=== PATIENT | male | born 1965 | race Caucasian/White ===

== ENCOUNTER 2021-11-19 07:20 | Emergency (ER) | payer MEDICARE, SELFPAY ==
--- NOTE | ~2021-11-19 | CT_ITS ---
EXAMINATION: CT abdomen pelvis wo con DATE: 11/19/2021 08:10 INDICATION: Left flank pain. TECHNIQUE: Computed tomography (CT) of the abdomen and pelvis was performed without intravenous contr ast. Automated exposure control and iterative reconstruction technique were employed. The dose-length product was 189.39 mGy-cm. COMPARISON: CT abdomen and pelvis 06/03/2015 FINDINGS: The visualized portions of the lung bases demonstrate mild atelectasis. No pleural effusion . The heart size is normal. No pericardial effusion. There is a small sliding hiatal hernia. The live r, gallbladder, pancreas, and adrenal glands are normal. Calcifications in the spleen are consistent with old granulomatous disease. Right kidney is normal. There is mild left hydronephrosis and hydrour eter. There is a 3 mm stone in distal left ureter. The prostate is mildly enlarged. There is divertic ulosis of the colon without evidence of diverticulitis. There are no dilated loops of bowel. The appe ndix is not visualized. There are no pathologically enlarged lymph nodes. There is no free intraperit mcleod fluid. There is mild lumbar spondylosis. IMPRESSION: 1. 3 mm stone in distal left ureter with mild left hydronephrosis and hydroureter. 2. Small sliding hiatal hernia. Reviewed, dictated and finalized at location B. IMPRESSION: 1. 3 mm stone in distal left ureter with mild left hydronephrosis and hydrouret er. 2. Small sliding hiatal hernia.
[2021-11-19 07:25] VITALS: BP 172/98; PULSE 71; RESP 18; TEMP 36.3; O2SAT 97
--- NOTE | 2021-11-19 07:38 | ED.ABDPAIN ---
HPI - Abdominal Pain General Chief Complaint: Back Pain/Injury Stated Complaint: POSSIBLE KIDNEY STONE Time Seen by Provider: 11/19/21 07:40 Related Data Allergies Allergy/AdvReac Type Severity Reaction Status Date / Time No Known Allergies Allergy Verified 11/19/21 07:37 [facility] Past Medical History Medical History (Updated 11/20/21 @ 00:00 by Latanya Pagan) Shoulder dislocation Surgical History Surgical History History of appendectomy Family History Family History Mother Hypertension Father Family history of pancreatic cancer, Onset Age: 61 Patient's father is Social History Social History Smoking packs per day: 0.5 Smoking cigarettes per day: 10.0 Years smoked: 35 Smoking pack-years: 17.50 Smoking status: Current every day smoker Tobacco type: cigarettes Second hand tobacco smoke exposure: Yes Alcohol intake: current Substance use: never Course Vital Signs Vital signs: Vital Signs Temperature 36.3 C L 11/19/21 07:25 Pulse Rate 71 11/19/21 07:25 Respiratory Rate 18 11/19/21 07:25 Blood Pressure 172/98 H 11/19/21 07:25 Pulse Oximetry 97 11/19/21 07:25 Temperature 36.3 C L 11/19/21 07:25 Pulse Rate 64 11/19/21 08:48 Respiratory Rate 16 11/19/21 08:48 Blood Pressure 150/60 H 11/19/21 08:48 Pulse Oximetry 97 11/19/21 08:48 MDM - Abdominal Pain Lab Data Result diagrams: 11/19/21 07:57 11/19/21 07:57 Labs: Lab Results 11/19/21 11/19/21 11/19/21 Range/Units 07:57 07:57 07:57 WBC 13.8 H (4.8-10.8) K/mm3 RBC 5.24 (4.70-6.10) M/mm3 Hgb 16.5 (14.0-18.0) g/dL Hct 47.6 (40.0-54.0) % MCV 90.8 (78.0-102.0) fL MCH 31.5 H (27.0-31.0) pg MCHC 34.7 (32.0-36.0) g/dL RDW 12.7 (11.6-14.4) % Plt Count 216 (150-420) K/mm3 MPV 9.2 (8.7-11.0) fl Immature Gran % (Auto) 0.4 H (0.0-0.0) % Neut % (Auto) 77.4 H (50.0-70.0) % Lymph % (Auto) 12.6 L (18.0-42.0) % [place] % (Auto) 8.4 (2.0-11.0) % Eos % (Auto) 1.1 (1.0-6.0) % Baso % (Auto) 0.1 (0.0-1.0) % Lymph # (Auto) 1.75 (1.10-4.50) K/mm3 [place] # (Auto) 1.16 H (0.10-0.90) K/mm3 Eos # (Auto) 0.15 (0.02-0.50) K/mm3 Baso # (Auto) 0.02 (0.00-0.10) K/mm3 Abs Immat Gran (auto) 0.06 H (0.00-0.00) K/mm3 Absolute Neuts (auto) 10.7 H (1.7-7.2) K/mm3 Absolute Nucleated RBC 0.00 (0.00-0.00) K/mm3 Nucleated RBC % 0.0 (0-0.0) % Sodium 139 (136-145) mmol/L Potassium 3.7 (3.5-5.1) mmol/L Chloride 105 (98-108) mmol/L Carbon Dioxide 24 (21-32) mmol/L Anion Gap 10 (8-16) mmol/L BUN 20 H (7-18) mg/dL Creatinine 1.26 (0.70-1.30) mg/dL Estim Creat Clear Calc 56 ml/min Estimated GFR 59 (59 - ) Glucose 109 H (70-99) mg/dL Calculated Osmolality 291 (285-295) mOsm/kg Calcium 8.8 (8.5-10.1) mg/dL Total Bilirubin 0.5 (0.00-1.00) mg/dL AST 25 (15-37) U/L ALT 24 (16-63) U/L Alkaline Phosphatase 120 H (46-116) U/L C-Reactive Protein 1.0 H (0.0-0.9) mg/dL Total Protein 7.4 (6.4-8.2) g/dL Albumin 3.8 (3.4-5.0) g/dL Urine Color (Yellow) Urine Appearance (Clear) Urine pH (5.0-8.0) Ur Specific [place] (1.010-1.020) Urine Protein (Negative) Urine Glucose (UA) (Negative) Urine Ketones (Negative) Ur Blood (Man) (Negative) Urine Nitrate (Negative) Urine Bilirubin (Negative) Urine Urobilinogen (0.2-1.0) mg/dL Leukocyte Esterase Rfl (Negative) MERRICK/UL Urine RBC (0-2) /hpf Urine WBC (0-3) /hpf Ur Squamous Epith Cells (Few) /hpf Calcium Oxalate Crystal (None) /hpf Urine Bacteria (None) /hpf 11/19/21 Range/Units 08:11 WBC (4.8-10.8
--- NOTE | 2021-11-19 07:40 | ED.ABDPAIN ---
HPI - Abdominal Pain General Chief Complaint: Back Pain/Injury Stated Complaint: POSSIBLE KIDNEY STONE Time Seen by Provider: 11/19/21 07:40 Source: patient and RN notes reviewed Mode of arrival: ambulatory Limitations: no limitations History of Present Illness MD elicited complaint: flank pain Pertinent past history: kidney stones Onset (ago): hour(s) (5) Pain Consistency: constant Location: L flank Severity: moderate Quality: stabbing and sharp Radiation: none Migration to: no migration Exacerbating factors: movement Relieving factors: nothing Associated symptoms: nausea Related Data Allergies Allergy/AdvReac Type Severity Reaction Status Date / Time No Known Allergies Allergy Verified 11/19/21 07:37 Review of Systems Review of Systems: All systems reviewed & are unremarkable except as noted in HPI and below PMFSH Past Medical History Medical History (Updated 11/19/21 @ 08:43 by Dax Person MD) Shoulder dislocation Surgical History Surgical History History of appendectomy Family History Family History Mother Hypertension Father Family history of pancreatic cancer, Onset Age: 61 Patient's father is Social History Social History Smoking packs per day: 0.5 Smoking cigarettes per day: 10.0 Years smoked: 35 Smoking pack-years: 17.50 Smoking status: Current every day smoker Tobacco type: cigarettes Second hand tobacco smoke exposure: Yes Alcohol intake: current Substance use: never Exam Const: General: healthy appearing, no acute distress and alert Nutritional Appearance: well nourished and thin Orientation/consciousness: patient oriented x3 HENMT: Head: normal to inspection Ears: external ears normal Eyes: Conjunctivae: conjunctivae normal Pupils: Equal, round and reactive pupils present EOM: EOMs intact bilaterally Neck: Neck: normal visual inspection Resp: Effort & Inspection: normal respiratory effort Auscultation: clear to auscultation bilaterally Cardio: Rate: regular rate Rhythm: regular rhythm GI: GI Palp: Yes Soft to palpation, Yes Tenderness to palpation present (GI) (LUQ), Yes Guarding due to palpation present (GI) (mild LUQ) and No Rebound tenderness present Auscultation: normal bowel sounds Back/Spine/Pelvis: Back: CVA tenderness (left moderate) Cervical Spine: cervical ROM normal Thoracic/Lumbar Spine: thoraco-lumbar ROM normal Skin: General skin exam: normal color Rashes: no rashes Neuro: General: patient oriented x3, moves all extremities, no meningeal signs and no focal motor deficits Speech: normal speech Gait exam (Neuro): Normal gait present Extrem: General: normal to inspection and no clubbing, cyanosis or edema Psych: Appearance: grossly normal and well kempt Mental Status: mental status grossly normal Affect: normal affect Attitude: cooperative Thought content: Yes Normal thought content present Course Vital Signs Vital signs: Vital Signs Temperature 36.3 C L 11/19/21 07:25 Pulse Rate 71 11/19/21 07:25 Respiratory Rate 18 11/19/21 07:25 Blood Pressure 172/98 H 11/19/21 07:25 Pulse Oximetry 97 11/19/21 07:25 Temperature 36.3 C L 11/19/21 07:25 Pulse Rate 64 11/19/21 08:48 Respiratory Rate 16 11/19/21 08:48 Blood Pressure 150/60 H 11/19/21 08:48 Pulse Oximetry 97 11/19/21 08:48 MDM - Abdominal Pain Lab Data Result diagrams: 11/19/21 07:57 11/19/21 07:57 Labs: Lab Results 11/19/21 11/19/21 11/19/21 Range/Units 07:57 07:57 07:57 WBC 13.8 H (4.8-10.8) K/mm3 RBC 5.24 (4.70-6.10) M/mm3 Hgb 16.5 (14.0-18.0) g/dL Hct 47.6 (40.0-54.0) % MCV 90.8 (78.0-102.0) fL MCH 31.5 H (27.0-31.0) pg MCHC 34.7 (32.0-36.0) g/dL RDW 12.7 (11.6-14.4) % Plt C
[2021-11-19] MEDS: KETOROLAC 30 MG/ML VIAL (*BKC) IM (07:53)
[2021-11-19 08:01] LABS: Basophils Absolute Auto 0.02 K/mm3 (0.00-0.10); Basophils Percent Auto 0.1 % (0.0-1.0); Eosinophils Absolute Auto 0.15 K/mm3 (0.02-0.50); Eosinophils Percent Auto 1.1 % (1.0-6.0); Hematocrit 47.6 % (40.0-54.0); Hemoglobin 16.5 g/dL (14.0-18.0); Immature Granulocyte Absolute 0.06 K/mm3 (0.00-0.00); Immature Granulocyte Percent A 0.4 % (0.0-0.0); Lymphocytes Absolute Auto 1.75 K/mm3 (1.10-4.50); Lymphocytes Percent Auto 12.6 % (18.0-42.0); Mean Corpuscular HGB Conc 34.7 g/dL (32.0-36.0); Mean Corpuscular Hemoglobin 31.5 pg (27.0-31.0); Mean Corpuscular Volume 90.8 fL (78.0-102.0); Mean Platelet Volume 9.2 fl (8.7-11.0); Monocytes Absolute Auto 1.16 K/mm3 (0.10-0.90); Monocytes Percent Auto 8.4 % (2.0-11.0); Neutrophils Absolute Auto 10.7 K/mm3 (1.7-7.2); Neutrophils Percent Auto 77.4 % (50.0-70.0); Platelet Count Result 216 K/mm3 (150-420); Red Blood Count 5.24 M/mm3 (4.70-6.10); Red Cell Distribution Width 12.7 % (11.6-14.4); White Blood Count 13.8 K/mm3 (4.8-10.8)
[2021-11-19 08:16] LABS: Add Urine Microscopic? YES; Appearance Urine Clear (Clear); Bilirubin Urine 1+ (Negative); Blood Urine 3+ (Negative); Color Urine Dark Yellow (Yellow); Glucose Urine UA Negative (Negative); Ketones Urine Trace (Negative); Leukocyte Esterase Ur Negative LEU/UL (Negative); Nitrate Urine Negative (Negative); Protein Urine Trace (Negative); Specific Grav Ur >= 1.030 (1.010-1.020); pH Urine 5.5 (5.0-8.0)
[2021-11-19 08:19] LABS: Alanine Aminotransferase 24 U/L (16-63); Albumin Level 3.8 g/dL (3.4-5.0); Alkaline Phosphatase 120 U/L (46-116); Anion Gap 10 mmol/L (8-16); Aspartate Amino Transferase 25 U/L (15-37); Bilirubin,Total 0.5 mg/dL (0.00-1.00); Blood Urea Nitrogen 20 mg/dL (7-18); Calcium 8.8 mg/dL (8.5-10.1); Carbon Dioxide 24 mmol/L (21-32); Chloride 105 mmol/L (98-108); Estimated CRCL calculation 56 ml/min; Estimated Glomerular Filt Rate 59; Glucose 109 mg/dL (70-99); Osmolality Calculated 291 mOsm/kg (285-295); Potassium 3.7 mmol/L (3.5-5.1); Sodium 139 mmol/L (136-145); Total Protein 7.4 g/dL (6.4-8.2)
[2021-11-19 08:28] LABS: RBC Urine 21-50 /hpf (0-2); Squamous Epithelial Cell Urine Few /hpf (Few); WBC Urine 0-3 /hpf (0-3)
[2021-11-19 08:29] LABS: Bacteria Urine None seen /hpf; Calcium Oxalate Crystals Urine Present /hpf
[2021-11-19 08:48] VITALS: BP 150/60; PULSE 64; RESP 16; O2SAT 97
== END 2021-11-19 08:55 | disposition home or self-care (01) ==
PROVIDERS: Emergency Provider Emergency Medicine; PCP Internal Medicine
DX: N20.1 Calculus of ureter (principal)
CPT/HCPCS: 36415; 74176; 80053; 81001; 85025; 86140; 96372; 99284; J1885

== ENCOUNTER 2022-08-12 13:20 | Emergency (ER) | payer MEDICARE, SELFPAY ==
[2022-08-12] VITALS (15 sets, daily range): BP systolic 119–171; BP diastolic 77–108; PULSE 50–60; RESP 11–14; TEMP 36.4; O2SAT 97–100
--- NOTE | ~2022-08-12 | CT_ITS ---
EXAMINATION: CTA chest abdomen pelvis DATE: 08/12/2022 14:51 INDICATION: Severe right flank and abdominal pain TECHNIQUE: Computed tomographic angiography (CTA) of the chest, abdomen, and pelvis was performed wit hout and with 100 mL Omnipque-350 intravenous contrast. Maximum intensity projection 3D-reconstructio ns of the aorta and other arteries were constructed by the technologist on a separate workstation. Th e dose-length product (DLP) was 683.20 mGy-cm. Automated exposure control and iterative reconstructio n technique were employed. COMPARISON: 11/19/2021 FINDINGS: CHEST CTA: There is no aneurysm or dissection of the thoracic aorta. The lungs are free of acute opacities. No p leural effusion or pneumothorax. There is mild dependent atelectasis. A stable 3 mm subpleural nodule is noted in the right lower lobe. There is a moderate-sized sliding hiatal hernia. No pathologically enlarged thoracic lymph nodes are identified. The heart size is normal. ABDOMEN AND PELVIS CTA: There is no aneurysm or dissection of the abdominal aorta. The celiac axis and superior mesenteric ar gavin, and inferior mesenteric artery are normal at their origins. There are two right and one left re nal arteries. The liver, pancreas, gallbladder, and adrenal glands are normal. Punctate calcification s in an otherwise normal spleen likely represent healed granulomatous disease. The kidneys are unrema rkable. No pathologically enlarged abdominal or pelvic lymph nodes are identified. There is a questio nable soft tissue density of the left posterolateral bladder wall. No free intraperitoneal gas or cam dence of bowel obstruction. IMPRESSION: 1. Unremarkable CTA. No aneurysm or dissection of the thoracic or abdominal aorta. 2. Moderate-sized sliding hiatal hernia. 3. Possible soft tissue mass of the left posterolateral bladder wall. Nonemergent urologic follow-up is recommended. Reviewed, dictated and finalized at location L. ESTATE ASSISTANT IMPRESSION: 1. Unremarkable CTA. No aneurysm or dissection of the thoracic or abdominal aor ta. 2. Moderate-sized sliding hiatal hernia. 3. Possible soft tissue mass of the left posterolateral bladder wall. Nonemerge nt urologic follow-up is recommended.
--- NOTE | 2022-08-12 13:31 | ECG_ITS ---
Measurements Intervals [place] Rate: 54 P: 77 [place]: 165 QRS: -24 QRSD: 90 T: 37 QT: 417 QTc: 395 Interpretive Statements SINUS BRADYCARDIA BORDERLINE LEFT AXIS DEVIATION [QRS AXIS < -20] NO PREVIOUS ECG AVAILABLE FOR COMPARISON Electronically Signed On 08-12-2022 14:59:49 ADMIN DIR by Ravin Yusuf M.D.
[2022-08-12 13:54] LABS: Basophils Percent Auto 0.2 % (0.2-1.2); Eosinophils Absolute Auto 0.1 K/mm3 (0-0.3); Hematocrit 49.7 % (42.0-52.0); Hemoglobin 17.3 g/dL (14.0-18.0); Immature Granulocyte Absolute 0.06 K/mm3 (0.00-0.031); Immature Granulocyte Percent A 0.5 % (0-0.5); Mean Corpuscular HGB Conc 34.8 g/dl (32-36); Mean Corpuscular Hemoglobin 32.2 pg (26-34); Mean Corpuscular Volume 92.6 fl (80-100); Mean Platelet Volume 9.2 fl (7.4-10.4); Monocytes Absolute Auto 0.7 K/mm3 (0.1-0.6); Monocytes Percent Auto 5.5 % (2.6-8.5); Neutrophils Absolute Auto 9.2 K/mm3 (1.3-6.7); Neutrophils Percent Auto 76.8 % (45.5-73.1); Platelet Count Result 245 k/mm3 (150-375); Red Blood Count 5.37 M/mm3 (4.6-6.20); Red Cell Distribution Width 13.2 % (11.5-14.5); White Blood Count 11.9 K/mm3 (4.5-10.0)
[2022-08-12 14:13] LABS: Alanine Aminotransferase 33 U/L (6-50); Albumin Level 4.9 g/dL (3.5-5.1); Alkaline Phosphatase 118 U/L (38-126); Anion Gap 10 mmol/L (8-16); Aspartate Amino Transferase 28 U/L (17-59); Bilirubin,Total 0.5 mg/dL (0.2-1.3); Blood Urea Nitrogen 20 mg/dL (9-20); Calcium 9.4 mg/dL (8.4-10.2); Carbon Dioxide 22 mmol/L (22-30); Chloride 103 mmol/L (98-107); Estimated CRCL calculation 79 ml/min; Estimated Glomerular Filt Rate > 60; Glucose 150 mg/dL (65-110); Lipase 56 U/L (23-300); Sodium 135 mmol/L (137-145)
--- NOTE | 2022-08-12 15:39 | ED.ABDPAIN ---
HPI - Abdominal Pain General Chief Complaint: Abdominal Pain Stated Complaint: low abd pain/back pain Time Seen by Provider: 08/12/22 13:35 History of Present Illness HPI narrative: Patient with history of chronic back pain on [place] presents with pain that has persisted despite his taking pain medicine, he states that he woke up around 8 this morning with a mild pain, it things started getting worse and seem to wrap to the front. States this feels different from when he had a kidney stone in the past. No nausea or vomiting. No focal numbness or weakness, no chest pain. No dysuria Related Data Allergies Allergy/AdvReac Type Severity Reaction Status Date / Time No Known Allergies Allergy Verified 05/05/22 09:50 Review of Systems Review of Systems: CONST: No fever. HEENT: No sore throat C/V: No chest pain RESP: No cough GI: Reports abdominal pain : No dysuria. M/S: No joint pain. SKIN: No rash. NEURO: [No headache or focal numbness or weakness] PSYCH: [No depression] PMFSH Past Medical History Medical History Shoulder dislocation Surgical History Surgical History History of appendectomy Family History Family History Mother Hypertension Father Family history of pancreatic cancer, Onset Age: 61 Patient's father is Social History Social History Smoking packs per day: 0.5 Smoking cigarettes per day: 10.0 Years smoked: 35 Smoking pack-years: 17.50 Smoking status: Current every day smoker Tobacco type: cigarettes Second hand tobacco smoke exposure: Yes Alcohol intake: current Substance use: never Lack of Transportation: No Lack of Food: Often True Current Housing: I Have Housing Concerned About Future Housing: No Difficulty Paying Gas/Electric Bills: Decline to Answer Difficulty Paying for Meds: No Currently Unemployed: No Education: Decline to Answer Difficulty w/ Childcare or Family Care: No Exam Narrative: EXAMINATION OF ORGAN SYSTEMS/BODY AREAS: Constitutional: Vital signs per nursing GENERAL:[No acute distress, non-toxic appearing.] HEAD: Normal with no signs of head trauma. EYES: EOMI, conjunctiva normal ENT: Hearing grossly intact LUNGS: Nonlabored breathing. HEART: [Regular rate and rhythm]. Normal pulses radial and DP bilaterally ABD: [Soft], mildly tender to palpation right side/flank EXT: Normal range of motion SKIN: [No rashes or lesions.] NEURO: [Alert and oriented x 3. No gross focal sensory or strength deficits.] PSYCH: Normal affect Course Vital Signs Vital signs: Vital Signs Temperature 97.5 F L 08/12/22 13:25 Pulse Rate 51 L 08/12/22 13:25 Respiratory Rate 14 08/12/22 13:25 Blood Pressure 171/108 H 08/12/22 13:25 Pulse Oximetry 100 08/12/22 13:25 Oxygen Delivery Room Air 08/12/22 13:25 Temperature 97.5 F L 08/12/22 13:25 Pulse Rate 60 08/12/22 16:45 Respiratory Rate 14 08/12/22 16:45 Blood Pressure 140/93 H 08/12/22 16:45 Pulse Oximetry 98 08/12/22 16:46 Oxygen Delivery Room Air 08/12/22 13:25 MDM - Abdominal Pain MDM Narrative Medical decision making narrative: Electronic medical record was reviewed. Patient presented to the ED with complaint of [abdominal and flank pain]; has had history of appendectomy. Vitals [were within acceptable limits]. Physical exam revealed soft abdomen with minimal tenderness to palpation right flank/abdomen. Based on the patient's history and physical exam, my differential includes but is not limited to [gastritis, muscle spasm, nephrolithiasis, gastroenteritis, cholecystitis, pancreatitis, dissection/aneurysm]. [IV access was established by nursing staff. Patient had already received fentanyl from EMS]. CBC, BMP, lipase, LFTs, bilirubin and alk
[2022-08-12 15:42] LABS: Appearance Urine Clear (Clear); Bilirubin Urine Negative (Negative); Blood Urine Trace-lysed (Negative); Color Urine Yellow (Yellow); Glucose Urine UA Trace mg/dL (Negative); Ketones Urine Negative (Negative); Leukocyte Esterase Ur Negative LEU/UL (Negative); Nitrate Urine Negative (Negative); Protein Urine Trace mg/dL (Negative); Specific Grav Ur 1.025 (1.001-1.035); Urobilinogen Urine 0.2 mg/dL (<2.0); pH Urine 6.5 (5.0-9.0)
[2022-08-12 15:53] LABS: Bacteria Urine Trace /hpf; Mucus Urine Rare /lpf; Squamous Epithelial Cell Urine Rare /hpf (Few)
[2022-08-12 16:31] LABS: Add Urine Microscopic? YES
== END 2022-08-12 17:02 | disposition home or self-care (01) ==
PROVIDERS: Emergency Medicine; Emergency Provider Emergency Medicine; PCP Internal Medicine
DX: R10.30 Lower abdominal pain, unspecified (principal); G89.29 Other chronic pain; M54.9 Dorsalgia, unspecified; F17.210 Nicotine dependence, cigarettes, uncomplicated; R00.1 Bradycardia, unspecified; K44.9 Diaphragmatic hernia without obstruction or gangrene; R93.41 Abnormal radiologic findings on diagnostic imaging of renal pelvis, ureter, or bladder
CPT/HCPCS: 36415; 71275; 74174; 80053; 81001; 83690; 85025; 93005; 99284; Q9967

== ENCOUNTER 2022-09-30 00:17 | Day surgery (SDC) | payer MEDICARE, SELFPAY ==
[2022-09-23 09:32] VITALS: BMI 25.4
--- NOTE | 2022-09-23 09:39 | PC.NURSE ---
Report to the Outpatient Waiting Room, entrance under the green pavilion located off [facility], at time 8:15 on date 09/30/22. Planned Procedure Time: 10:15. Time changes happen often and if your time is changed the preop area will call you the afternoon before. - You and your visitor will be asked to self-screen and do not enter if you have any COVID symptoms. - Only one visitor is requested with a max of two and NO children visitors are allowed at this time. - The patient visitor may be requested to leave or wait in car when not with patient due to distancing restrictions. - A mask is optional within the hospital at this time. Patients may have clear liquids (water, carbonated beverages, clear teas, apple juice) until 3 hours prior to surgery with a maximum of 20 ounces. - No food from midnight until time of surgery Take the following medications with a SIP of water the morning of surgery: PAIN PILL IF NEEDED DO NOT STOP ANY OF YOUR OTHER PRESCRIPTION MEDICATIONS PRIOR TO SURGERY?EXCEPT THE FOLLOWING Medications to discontinue per physician: N/A Date to take last dose: N/A Please no make-up, nail mozambican, hairspray, perfume, deodorant, or body powder the day of surgery. No jewelry (including any body piercings) or valuables the day of surgery, leave them at home. Please take a shower or bath the night before, or the morning of, surgery with an antibacterial soap. Wear comfortable, loose fitting clothing. - Jewelry must be removed prior to entering the operating room. Rings and piercings that are not removed may be cut off. - The hospital will not accept responsibility for valuables. - Please leave all valuables, including medications, at home the day of surgery. If you are going home after surgery, a licensed regional driver must drive you home. - NO public transportation without another adult if you receive anesthesia. - We recommend that an adult stay with you for 24 hours following discharge. - We also recommend that you do not drive, make important decision, drink alcoholic beverages, or take any drugs that were not prescribed by your health care provider for at least 24 hours after your discharge time. Follow any additional instructions given to you from your surgeon. If you or anyone in your household have experienced Covid symptoms in the past week, please notify your surgeon or the nurse liaison at the phone number below for possible testing. Telephone instructions given to PT - DEEPAK SOLER and asked if any additional questions and then verbalized understanding. Patient advised to call surgeon office or pre surgery nurse liaison [phone] if any additional questions.
[2022-09-30] VITALS (12 sets, daily range): BP systolic 105–150; BP diastolic 73–89; PULSE 55–89; RESP 10–16; TEMP 36.2–36.3; O2SAT 98–100
--- NOTE | 2022-09-30 08:14 | WPDHPUPDATE1 ---
History and Physical Update Update Date/Time: 09/30/22 08:14 History and Physical has been reviewed, including an updated exam of the patient. There are NO changes in the patient's condition. Risks, benefits, and alternatives have been discussed and questions answered. Patient agrees to proceed with procedure. Proceed with transurethral resection of bladder tumor
[2022-09-30] MEDS: LACTATED RINGERS 1,000 ML 30 ML IV CONT (08:45)
--- NOTE | 2022-09-30 09:00 | WPDANESEPPF ---
Anes - Initial Pre Proc Eval Procedure: Operation Date: 09/30/22 10:15 Proposed Procedures p Trans Urethral Resection Bladder Tumor - Amando Waters MD Date/Time: 09/30/22 09:00 Surgeon: Amando Waters MD Pre Op Diagnosis: Bladder Lesion Patient Data Age: 57 Gender: M Height: 1.74 m Weight: 77.11 kg Allergies Allergy/AdvReac Type Severity Reaction Status Date / Time No Known Allergies Allergy Verified 09/23/22 09:31 Home Medications Medication Instructions Recorded Confirmed Type hydrocodone 5 mg-acetaminophen 325 1 tablet PO Q12H PRN pain #60 tabs 07/29/22 09/23/22 Rx mg tablet omeprazole 20 mg capsule,delayed 20 mg PO BID #60 caps 09/03/22 09/23/22 Rx release Laboratory Tests 09/30/22 08:47 PT Pending INR Pending APTT Pending Patient hx anesthesia problems: none Family hx anesthesia problems: none Results Review: All pre-operative results and documents have been reviewed as part of the pre-operative evaluation. [facility] Past Medical History Medical History Shoulder dislocation Surgical History Surgical History History of appendectomy Family History Family History Mother Hypertension Father Family history of pancreatic cancer, Onset Age: 61 Patient's father is Social History Social History Smoking packs per day: 0.5 Smoking cigarettes per day: 10.0 Years smoked: 30 Smoking pack-years: 15.00 Smoking status: Current every day smoker Tobacco type: cigarettes Second hand tobacco smoke exposure: Yes Alcohol intake: current Alcohol use details: 4/MONTH Substance use: current Substance use type: marijuana Lack of Transportation: No Lack of Food: Never True Current Housing: I Have Housing Concerned About Future Housing: No Difficulty Paying Gas/Electric Bills: No Difficulty Paying for Meds: No Currently Unemployed: No Education: Decline to Answer Difficulty w/ Childcare or Family Care: No Living arrangements: with family Spiritual care concerns: No Anes - Eval Final PreProcedure Day of Procedure 09/30/22 09:00 Patient weight: normal Heart: regular rate and rhythm Lungs: decreased breath sounds Airway: Mallampati scale class II Neurological: alert and oriented Last oral intake: >/= 8 hours ASA classification: III Emergent: no Anesthetic plan: proceed Anesthesia type and monitoring: general LMA and standard monitoring Results Review: All pre-operative results and documents have been reviewed as part of the pre-operative evaluation. Informed Consent: The patient's anesthetic plan and its attendant risks and benefits were discussed with the patient/family/POA. Questions were solicited and answers provided to the satisfaction of the patient/family/POA.
[2022-09-30 09:10] LABS: Prothrombin Time 12.7 Seconds (11.1-14.7)
[2022-09-30] MEDS: ceFAZolin 2 GM/D5W 50 ML 2 GM/50 ML BAG IVPB (09:17)
[2022-09-30] MEDS: LIDOCAINE HCL 2% GEL UROJET 10 ML PKG MUCOUS MEM (09:30)
--- NOTE | 2022-09-30 09:43 | W.PM.PROC2 ---
Procedure Note - Detailed Date of Procedure 09/30/22 Pre-op Diagnosis Bladder Lesion Post-op Diagnosis Same Procedure Performed Transurethral resection of bladder tumor medium size 3 cm Surgeon Amando Waters MD Anesthesia General Description of Procedure Patient is taken to the operative suite correctly identified. Once anesthesia was obtained was placed in door for pulmonary position and prepped and draped usual sterile fashion. [place] resectoscope sheath was inserted the bladder. He has a tumor located just lateral to the left ureteral orifice. The area in diameters about 3 cm. We resected this area and then took a separate specimen from the base. There appeared to be good hemostasis at the termination of the procedure. We had fulgurated the base area. At this point the bladder was drained 2% viscous lidocaine was inserted into the urethra. Patient is taken recovery stable condition. Instructed to call for path results in a week if he is not her illness. Please send a copy of op note to my office Estimated Blood Loss 0 Drains Yes Packing No Pathology Yes Complications No immediate complications Condition Stable Disposition PACU
== END 2022-09-30 12:42 | disposition home or self-care (01) ==
PROVIDERS: PCP Internal Medicine; Visit Provider Urology
PROC: 0TBB8ZZ Excision of Bladder, Via Natural or Artificial Opening Endoscopic (ICD-10-PCS; CPT 52235; principal; 2022-09-30 10:15)
DX: C67.2 Malignant neoplasm of lateral wall of bladder (principal); F17.210 Nicotine dependence, cigarettes, uncomplicated; F12.90 Cannabis use, unspecified, uncomplicated
CPT/HCPCS: 52235; 36415; 85610; 85730; 88305; J0690; J1100; J1170; J2250; J2405; J2704; J3010; J7120

== ENCOUNTER 2022-12-09 21:25 | Emergency (ER) | payer MEDICARE, SELFPAY ==
--- NOTE | ~2022-12-09 | CT_ITS ---
EXAMINATION: CTA chest PE protocol DATE: 12/09/2022 22:49 INDICATION: Chest pain TECHNIQUE: Computed tomography angiography (CTA) of the chest was performed with 100 mL Omnipaque-350 intravenous contrast timed to evaluate the pulmonary arteries. Coronal maximum intensity projection 3D-reconstructions were created by the technologist. The dose-length product (DLP) was 310.79 mGy-cm. Automated exposure control and iterative reconstruction technique were employed. COMPARISON: 08/12/2022 FINDINGS: The pulmonary arteries are well-opacified. No pulmonary embolism is identified. No patholog ically enlarged thoracic lymph nodes are identified. The heart size is normal. The lungs are free of acute opacities. No pleural effusion or pneumothorax. A moderate-sized sliding hiatal hernia is noted . IMPRESSION: 1. No pulmonary embolism or acute cardiopulmonary abnormality. Reviewed, dictated and finalized at location F.
[2022-12-09 21:37] VITALS: BP 136/84; PULSE 84; TEMP 36.8; O2SAT 99
--- NOTE | 2022-12-09 21:38 | ECG_ITS ---
Measurements Intervals [place] Rate: 79 P: 40 HI: 164 QRS: -20 QRSD: 85 T: 53 QT: 354 QTc: 407 Interpretive Statements SINUS RHYTHM LOW QRS VOLTAGE IN PRECORDIAL LEADS [QRS DEFLECTION < 1.0 mV IN CHEST LEADS] ABNORMAL ECG COMPARED TO ECG 08/12/2022 13:28:55 SINUS RHYTHM NOW PRESENT Electronically Signed On 12-10-2022 9:39:44 CDT by Clinton Bundy M.D.
--- NOTE | 2022-12-09 21:39 | ED.GENADULT ---
HPI - General Adult General Chief complaint: Chest Pain Stated complaint: chest pain Time Seen by Provider: 12/09/22 21:37 History of Present Illness HPI narrative: 57yo man with history of bladder tumor recently discovered in August 12 and resected September 30 (surgical path Non-invasive low-grade papillary urothelial carcinoma with clean margins of benign urothelium and muscularis propria) presents complaining of left chest and shoulder pain onset 3 weeks ago, waxing and waning, worse with deep inspiration and motions of the arms. He attributes it to a strain where he reached across his boat sidewall to grab a fish; however, it has persisted these 3 weeks, feels sharp, and sometimes the left chest wall is tender, leading him to believe he may have cracked a rib somehow, though there has been no traumatic blow or fall. No fevers, chills, cough, nausea, sweatiness, leg pain or swelling. Related Data Allergies Allergy/AdvReac Type Severity Reaction Status Date / Time No Known Allergies Allergy Verified 09/30/22 09:02 Review of Systems Review of Systems: All systems reviewed & are unremarkable except as noted in HPI and below Constitutional: Constitutional: Denies fever(s) ENT: Denies dysphagia and Denies dizziness Cardiovascular: Cardiovascular: Reports chest pain Respiratory: Respiratory: Denies cough and Denies dyspnea Gastrointestinal: Gastrointestinal: Denies abdominal pain PMF Past Medical History Medical History (Updated 12/09/22 @ 23:30 by Peyman Perdomo MD) Shoulder dislocation Surgical History Surgical History History of appendectomy Family History Family History Mother Hypertension Father Family history of pancreatic cancer, Onset Age: 61 Patient's father is Social History Social History Smoking packs per day: 0.5 Smoking cigarettes per day: 10.0 Years smoked: 30 Smoking pack-years: 15.00 Smoking status: Current every day smoker Tobacco type: cigarettes Second hand tobacco smoke exposure: Yes Alcohol intake: current Alcohol use details: 4/MONTH Substance use: current Substance use type: marijuana Lack of Transportation: No Lack of Food: Never True Current Housing: I Have Housing Concerned About Future Housing: No Difficulty Paying Gas/Electric Bills: No Difficulty Paying for Meds: No Currently Unemployed: No Education: Decline to Answer Difficulty w/ Childcare or Family Care: No Living arrangements: with family Spiritual care concerns: No Exam Const: General: healthy appearing; No no acute distress or confusion Nutritional Appearance: well nourished Orientation/consciousness: patient oriented x3 HENMT: Head: normal to inspection Eyes: Conjunctivae: conjunctivae normal Neck: Other: supple Chest: Chest palpation & inspection: tenderness Other: tender to small area just inferior to the clavicle Resp: Effort & Inspection: normal respiratory effort and not labored Cardio: Rate: regular rate Rhythm: regular rhythm GI: Inspection: non-distended Skin: General skin exam: normal color, no jaundice and no pallor Neuro: General: patient oriented x3, moves all extremities and no focal motor deficits Course Vital Signs Vital signs: Vital Signs Temperature 36.8 C 12/09/22 21:37 Pulse Rate 84 12/09/22 21:37 Blood Pressure 136/84 12/09/22 21:37 Pulse Oximetry 99 12/09/22 21:37 Oxygen Delivery Room Air 12/09/22 21:37 Temperature 36.8 C 12/09/22 21:37 Pulse Rate 66 12/09/22 23:12 Respiratory Rate 18 12/09/22 23:12 Blood Pressure 141/98 H 12/09/22 23:12 Pulse Oximetry 98 12/09/22 23:12 Oxygen Delivery Room Air 12/09/22 23:12 Medical Decision Making KATRIN morales
[2022-12-09 21:54] LABS: Basophils Absolute Auto 0.03 K/mm3 (0.00-0.10); Basophils Percent Auto 0.3 % (0.0-1.0); Eosinophils Absolute Auto 0.12 K/mm3 (0.02-0.50); Eosinophils Percent Auto 1.1 % (1.0-6.0); Hematocrit 46.5 % (40.0-54.0); Hemoglobin 15.8 g/dL (14.0-18.0); Immature Granulocyte Absolute 0.03 K/mm3 (0.00-0.00); Immature Granulocyte Percent A 0.3 % (0.0-0.0); Lymphocytes Absolute Auto 2.37 K/mm3 (1.10-4.50); Lymphocytes Percent Auto 22.5 % (18.0-42.0); Mean Corpuscular Hemoglobin 31.9 pg (27.0-31.0); Mean Corpuscular Volume 93.9 fL (78.0-102.0); Mean Platelet Volume 9.3 fl (8.7-11.0); Monocytes Absolute Auto 0.73 K/mm3 (0.10-0.90); Monocytes Percent Auto 6.9 % (2.0-11.0); Neutrophils Absolute Auto 7.2 K/mm3 (1.7-7.2); Neutrophils Percent Auto 68.9 % (50.0-70.0); Platelet Count Result 256 K/mm3 (150-420); Red Blood Count 4.95 M/mm3 (4.70-6.10); Red Cell Distribution Width 13.2 % (11.6-14.4); White Blood Count 10.5 K/mm3 (4.8-10.8)
[2022-12-09] MEDS: KETOROLAC 30 MG/ML VIAL (*BKC) IV PUSH (21:54)
[2022-12-09] MEDS: methocarbamoL 500 MG TABLET 1000 MG PO (21:56)
[2022-12-09] MEDS: ACETAMINOPHEN 500 MG TABLET 1000 MG PO (21:56)
[2022-12-09 22:15] LABS: Alanine Aminotransferase 28 U/L (16-63); Alkaline Phosphatase 112 U/L (46-116); Anion Gap 12 mmol/L (8-16); Aspartate Amino Transferase 14 U/L (15-37); Bilirubin,Total 0.3 mg/dL (0.00-1.00); Blood Urea Nitrogen 15 mg/dL (7-18); Calcium 8.5 mg/dL (8.5-10.1); Carbon Dioxide 24 mmol/L (21-32); Chloride 107 mmol/L (98-108); Estimated Glomerular Filt Rate > 60; Glucose 88 mg/dL (70-99); Osmolality Calculated 295 mOsm/kg (285-295); Potassium 4.2 mmol/L (3.5-5.1); Sodium 143 mmol/L (136-145); Total Protein 7.4 g/dL (6.4-8.2)
[2022-12-09 22:25] LABS: Troponin I < 4.0 ng/L (0.00-60.4)
[2022-12-09 23:12] VITALS: BP 141/98; PULSE 66; RESP 18; O2SAT 98
[2022-12-09 23:40] VITALS: BP 131/110; PULSE 67; RESP 18; TEMP 37.1; O2SAT 97
== END 2022-12-09 23:42 | disposition home or self-care (01) ==
PROVIDERS: Emergency Provider Emergency Medicine
DX: S29.011A Strain of muscle and tendon of front wall of thorax, initial encounter (principal); F17.210 Nicotine dependence, cigarettes, uncomplicated; Z85.51 Personal history of malignant neoplasm of bladder; X50.0XXA Overexertion from strenuous movement or load, initial encounter; Y92.814 Boat as the place of occurrence of the external cause
CPT/HCPCS: 36415; 71275; 80053; 84484; 85025; 93005; 96374; 99284; A9270; J1885; Q9967

== ENCOUNTER 2023-09-26 09:27 | Outpatient (CLI) | payer MEDICARE, SELFPAY ==
[2023-09-26 09:52] LABS: Basophils Absolute Auto 0.03 K/mm3 (0.00-0.10); Basophils Percent Auto 0.4 % (0.0-1.0); Eosinophils Absolute Auto 0.21 K/mm3 (0.02-0.50); Eosinophils Percent Auto 2.6 % (1.0-6.0); Hematocrit 51.2 % (40.0-54.0); Hemoglobin 17.5 g/dL (14.0-18.0); Immature Granulocyte Absolute 0.02 K/mm3 (0.00-0.00); Immature Granulocyte Percent A 0.2 % (0.0-0.0); Lymphocytes Absolute Auto 2.17 K/mm3 (1.10-4.50); Lymphocytes Percent Auto 26.9 % (18.0-42.0); Mean Corpuscular HGB Conc 34.2 g/dL (32-36); Mean Corpuscular Hemoglobin 31.4 pg (27.0-31.0); Mean Corpuscular Volume 91.9 fL (78.0-102.0); Mean Platelet Volume 9.6 fl (8.7-11.0); Monocytes Absolute Auto 0.62 K/mm3 (0.10-0.90); Monocytes Percent Auto 7.7 % (2.0-11.0); Neutrophils Absolute Auto 5.02 K/mm3 (1.70-7.20); Neutrophils Percent Auto 62.2 % (50.0-70.0); Platelet Count Result 239 K/mm3 (150-420); Red Blood Count 5.57 M/mm3 (4.70-6.10); Red Cell Distribution Width 13.3 % (11.6-14.4); White Blood Count 8.1 K/mm3 (4.8-10.8)
[2023-09-26 10:30] LABS: Alanine Aminotransferase 37 U/L (16-63); Albumin Level 4.1 g/dL (3.4-5.0); Alkaline Phosphatase 102 U/L (46-116); Anion Gap 11 mmol/L (8-16); Aspartate Amino Transferase 16 U/L (15-37); Bilirubin,Total 0.7 mg/dL (0.00-1.00); Blood Urea Nitrogen 18 mg/dL (7-18); Carbon Dioxide 27 mmol/L (21-32); Chloride 107 mmol/L (98-108); Cholesterol 171 mg/dL (0-200); Estimated Glomerular Filt Rate > 60; Free T4 Free Thyroxine 0.82 ng/dL (0.76-1.46); Glucose 97 mg/dL (70-99); HDL Direct 56 mg/dL (40-60); LDL Cholesterol Calculated 100 mg/dL (<130); Osmolality Calculated 301 mOsm/kg (285-295); Potassium 4.6 mmol/L (3.5-5.1); Sodium 145 mmol/L (136-145); Thyroid Stimulating Hormone 3.19 uIU/mL (0.36-3.74); Total Protein 7.2 g/dL (6.4-8.2); Triglycerides 73 mg/dL (0-150)
== END 2023-09-26 09:28 | disposition home or self-care (01) ==
LOC: CHSLAB 09:32
PROVIDERS: PCP Internal Medicine; Visit Provider Internal Medicine
DX: E78.49 Other hyperlipidemia (principal); R53.83 Other fatigue; C67.9 Malignant neoplasm of bladder, unspecified; R79.89 Other specified abnormal findings of blood chemistry; Z12.5 Encounter for screening for malignant neoplasm of prostate; R76.8 Other specified abnormal immunological findings in serum
CPT/HCPCS: 36415; 80053; 80061; 84153; 84439; 84443; 85025; G0103

== ENCOUNTER 2025-02-04 07:33 | Outpatient (CLI) | payer MEDICARE, SELFPAY ==
--- OUTSIDE RECORDS SUMMARY | 2025-02-04 07:37 | XMS_ITS | Continuity of Care Document ---
Author Organization [facility] Address [address] [place] [address] Phone Care Team Providers Care Case Monitor Name Role Phone Barnhart OD, Dax Unavailable Unavailable Advance Directives Directive Yes / No Effective Date File Name No Information Encounters Encounter Description Practice Location Reason(s) For Visit Diagnoses Date Provider Providers Copied on Encounter [facility], [address], [place], [place], [id number], [place] tel:[phone] [facility] No Information Sep-0 2-200 4 Barnhart OD Dax. [address] , [address], [place], [address], [place]. tel:[phone] Family History Family Member Type Diagnosis Age At Onset No Information Payers Payer name Insurance type Covered democrat ID Authoriza tion(s) No Information Social History Type Description Quantity Date Captured Comments Sex Male Smoking Status No Information Chief Complaint And Reason For Visit No Information Reason For Referral Reason For Referral No Information History Of Present Illness Encounter Date Complaint History Of Prese nt Illness No Information Functional Status Date Functional Assessmen t No Information Instructions Date Instruction Additional Infor mation No Information Assessments Type Assessment Date No Information Patient Care Teams Name Effective Dates (start - stop) Status Members No Information
[2025-02-04 08:35] LABS: Hematocrit 50.5 % (42.0-52.0); Hemoglobin 17.1 g/dL (14.0-18.0); Immature Granulocyte Percent A 0.7 % (0-0.5); Lymphocytes Absolute Auto 3.33 K/mm3 (0.9-3.2); Mean Corpuscular HGB Conc 33.9 g/dl (32-36); Mean Corpuscular Hemoglobin 31.8 pg (26-34); Mean Corpuscular Volume 93.9 fl (80-100); Nucleated Red Blood Cells Absolute Auto 0.000 K/mm3 (0.0-0.012); Nucleated Red Blood Cells Perc 0.0 % (0.0-0.2); Platelet Count Result 246 k/mm3 (150-375); Red Blood Count 5.38 M/mm3 (4.6-6.20); White Blood Count 9.2 K/mm3 (4.5-10.0)
[2025-02-04 09:15] LABS: Albumin Level 4.3 g/dL (3.5-5.1); Alkaline Phosphatase 100 U/L (38-126); Anion Gap 7 mmol/L (4-12); Bilirubin,Total 0.4 mg/dL (0.2-1.3); Blood Urea Nitrogen 19 mg/dL (9-20); Calcium 9.2 mg/dL (8.4-10.2); Carbon Dioxide 26 mmol/L (22-30); Chloride 107 mmol/L (98-107); Cholesterol 174 mg/dL (0-200); Estimated Glomerular Filt Rate > 60; Glucose 94 mg/dL (65-110); HDL Direct 48 mg/dL; Potassium 3.8 mmol/L (3.4-5.0); Sodium 140 mmol/L (137-145); Total Protein 7.4 g/dL (6.3-8.2); Triglycerides 122 mg/dL (<150)
[2025-02-04 09:28] LABS: Alanine Aminotransferase 24 U/L (6-50); Aspartate Amino Transferase 29 U/L (17-59)
[2025-02-04 09:51] LABS: Prostate Specific Antigen 1.3 ng/mL (< OR = 4.0); Thyroid Stimulating Hormone 3.430 uIU/mL (0.465-4.680)
== END 2025-02-04 07:34 | disposition home or self-care (01) ==
LOC: ANHLAB 07:35
PROVIDERS: PCP Internal Medicine; Visit Provider Internal Medicine
DX: E78.5 Hyperlipidemia, unspecified (principal); R79.89 Other specified abnormal findings of blood chemistry; D75.1 Secondary polycythemia; Z12.5 Encounter for screening for malignant neoplasm of prostate; R53.83 Other fatigue; E78.49 Other hyperlipidemia
CPT/HCPCS: 36415; 80053; 80061; 84153; 84443; 85025; G0103